=== PATIENT | male | born 1990 | race American Indian/Alaskan Native ===

== ENCOUNTER 2020-07-04 23:08 | Emergency (ER) | payer SELFPAY ==
[2020-07-05 01:03] LABS: Basophils % (Auto) 0.5 % (0.0-1.8); Eosinophils # (Auto) 0.1 K/mm3 (0.0-0.4); Eosinophils % (Auto) 1.5 % (0.0-4.3); Hematocrit 47.5 % (35.5-45.6); Hemoglobin 16.5 gm/dl (11.8-15.2); Lymphocytes # (Auto) 1.2 K/mm3 (1.2-5.4); Lymphocytes % (Auto) 20.6 % (13.4-35.0); Mean Corpuscular HGB Conc 35 % (32-34); Mean Corpuscular Volume 90 fl (84-94); Monocytes # (Auto) 0.5 K/mm3 (0.0-0.8); Monocytes % (Auto) 8.6 % (0.0-7.3); Platelet Count 194 K/mm3 (140-440); Red Blood Count 5.29 M/mm3 (3.65-5.03); Red Cell Distribution Width 13.8 % (13.2-15.2)
[2020-07-05 01:16] LABS: Alanine Aminotransferase 26 units/L (7-56); BUN/Creatinine Ratio 14; Blood Urea Nitrogen 15 mg/dL (9-20); Calcium 8.8 mg/dL (8.4-10.2); Hemolysis Index 5
[2020-07-05] MEDS ORDERED: FAMOTIDINE 20 MG/2 ML INJ IV ONE (01:32)
[2020-07-05] MEDS ORDERED: MORPHINE 4 MG/1 ML INJ IV ONE (01:32)
[2020-07-05] MEDS ORDERED: SODIUM CHLORIDE 0.9% 1000 ML 1,000 ML IV ONE (01:32)
[2020-07-05] MEDS ORDERED: ONDANSETRON 4 MG/2 ML INJ IV ONE (01:32)
--- NOTE | 2020-07-05 02:35 | Cat Scan Report ---
CT abdomen pelvis w con INDICATION: Abdominal pain. TECHNIQUE: All CT scans at this location are performed using CT dose reduction for ALARA by means of automated e xposure control. COMPARISON: None available. FINDINGS: Lung bases are clear of acute disease. Liver, gallbladder, spleen, pancreas, kidneys and adrenals are negative. Abdominal aorta is normal in size. No significant adenopathy. Pelvis Small bowel loops in the lower abdomen and pelvis are fluid-filled and mildly distended. No appreciab le free fluid. Urinary bladder is unremarkable. Appendix cannot be identified. No skeletal lesions. IMPRESSION: 1. Mildly distended and fluid-filled distal small bowel, suggesting enteritis. Etiology is not known. No evidence of obstruction. Signer Name: Lauri Mon MD Signed: 07/05/2020 2:30 AM Workstation Name: [id number]
--- NOTE | 2020-07-05 02:38 | XRay Report ---
CHEST 1 VIEW INDICATION: chest pain COMPARISON: None FINDINGS: Support devices: None Heart: Normal Lungs/Pleura: No acute pulmonary or pleural findings. Additional findings: Moderately severe upper thoracic scoliosis. IMPRESSION: 1. No acute disease. Signer Name: Lauri Mon MD Signed: 07/05/2020 2:33 AM Workstation Name: [id number]
--- NOTE | 2020-07-05 02:41 | Emergency Department Report ---
ED Abdominal Pain HPI - General Chief Complaint: Abdominal Pain Stated Complaint: CHEST PAIN/ABDOMINAL PAIN Source: patient Mode of arrival: Ambulatory Limitations: No Limitations - History of Present Illness Initial Comments: Patient is a 29-year-old -Citizen Of [place] male with no past medical history presents to the ED with complaint of acute onset persistent diffuse abdominal pain with intractable nausea and vomiting with diarrhea for the last 4 days worse in the last 24 hours. Patient states that he can hardly keep anything down including fluids and solid foods and admits that he has not eaten any food in the last 2 days. Patient states that his girlfriend also had similar symptoms about a week ago but her symptoms resolved without any treatment. Patient is unsure as to whether the etiology of the symptoms is from eating food from a restaurant. Patient also complains of chills, diffuse body aches and pains and subjective fever, lack of appetite, sore throat and diffuse burning chest pain. Patient denies dizziness, syncope, lightheadedness, shortness of breath, change in vision, nasal and sinus congestion, headache, dysuria, urinary frequency and urgency, hematemesis, hematochezia, palpitations or cough. MD Complaint: abdominal pain, other (nausea, vomiting, chest pain) -: Sudden, days(s) (4) Location: periumbilical, epigastric Radiation: none Migration to: no migration Severity: severe Severity scale (0 -10): 7 Quality: cramping, aching Consistency: constant Improves With: nothing Worsens With: eating, vomiting Context: possible food poisoning Associated Symptoms: denies other symptoms, nausea, vomiting, diarrhea, chills, anorexia. denies: fever, constipation, dysuria, hematemesis, hematochezia, melena, hematuria - Related Data Previous Rx's Medication Instructions Recorded Last Taken Type Dicyclomine [Bentyl] 20 mg PO Q6H PRN #30 tablet 07/05/20 Unknown Rx Famotidine [Pepcid] 20 mg PO BID #30 tablet 07/05/20 Unknown Rx Ondansetron [Zofran Odt] 4 mg PO Q6HR PRN #20 tab.rapdis 07/05/20 Unknown Rx Allergies Allergy/AdvReac Type Severity Reaction Status Date / Time No Known Allergies Allergy Unverified 07/04/20 23:53 ED Review of Systems ROS: Stated complaint: CHEST PAIN/ABDOMINAL PAIN Other details as noted in HPI Constitutional: chills, malaise, weakness Eyes: denies: eye pain, eye discharge, vision change ENT: denies: ear pain, throat pain Respiratory: denies: cough, shortness of breath, wheezing Cardiovascular: chest pain. denies: palpitations Endocrine: no symptoms reported Gastrointestinal: abdominal pain, nausea, vomiting, diarrhea. denies: hematemesis, melena, hematochezia Genitourinary: denies: urgency, dysuria Musculoskeletal: denies: back pain, joint swelling, arthralgia Skin: denies: rash, lesions Neurological: denies: headache, weakness, paresthesias Psychiatric: denies: anxiety, depression Hematological/Lymphatic: denies: easy bleeding, easy bruising ED Past Medical Hx - Past Medical History Previous Medical History?: No - Surgical History Past Surgical History?: No - Social History Smoking Status: Never Smoker - Medications Home Medications: Home Medications Medication Instructions Recorded Confirmed Last Taken Type Dicyclomine [Bentyl] 20 mg PO Q6H PRN #30 tablet 07/05/20 Unknown Rx Famotidine [Pepcid] 20 mg PO BID #30 tablet 07/05/20 Unknown Rx Ondansetron [Zofran Odt] 4 mg PO Q6HR PRN #20 tab.rapdis 07/05/20 Unknown Rx ED Physical Exam - General Limitations: No Limitations General appearance: alert, in no apparent distress - Head Head exam: Present: atraumatic, normocephalic, normal inspection - Eye Eye exam: Present: normal appearance, PERRL, EOMI - ENT ENT exam: Present: normal exam, normal orophraynx, mucous membranes moist, TM's normal bilaterally, normal external ear exam - Neck Neck exam: Present: normal inspection, full ROM - Respiratory Respiratory exam: Present: normal lung sounds bilaterally. Absent: respiratory distress, wheezes, rhonchi, chest wall tenderness, accessory muscle use - Cardiovascular Cardiovascular Exam: Present: normal rhythm, bradycardia, normal heart sounds. Absent: systolic murmur, diastolic murmur, rubs, gallop - GI/Abdominal GI/Abdominal exam: Present: soft, tenderness (Palpable diffuse abdominal tenderness, worse in the periumbilical and the epigastric area, no guarding or rebound), normal bowel sounds, hyperactive bowel sounds. Absent: guarding, rebound - Extremities Exam Extremities exam: Present: normal inspection, full ROM, normal capillary refill - Back Exam Back exam: Present: normal inspection, full ROM. Absent: tenderness, CVA tenderness (L), muscle spasm, paraspinal tenderness - Neurological Exam Neurological exam: Present: alert, oriented X3, CN II-XII intact, normal gait, reflexes normal - Psychiatric Psychiatric exam: Present: normal affect, normal mood - Skin Skin exam: Present: warm, dry, intact, normal color. Absent: rash ED Course Vital Signs 07/04/20 23:57 Temperature 98.5 F Pulse Rate 57 L Respiratory 18 Rate Blood Pressure 93/61 O2 Sat by Pulse 99 Oximetry ED Medical Decision Making - Lab Data Result diagrams: 07/05/20 00:22 07/05/20 00:22 - Radiology Data Radiology results: report reviewed, image reviewed [facility] [address] [place] [address] Cat Scan Report Signed Patient: UYEN STOKES MR#: [id number] 4 : 1990 Acct:[id number] Age/Sex: 29 / M ADM Date: 07/04/20 Loc: ED Attending Dr: Ordering Physician: ESTEBAN TOLBERT Date of Service: 07/05/20 Procedure(s): CT abdomen pelvis w con Accession Number(s): [id number] cc: ESTEBAN TOLBERT CT abdomen pelvis w con INDICATION: Abdominal pain. TECHNIQUE: All CT scans at this location are performed using CT dose reduction for ALARA by means of automated exposure control. COMPARISON: None available. FINDINGS: Lung bases are clear of acute disease. Liver, gallbladder, spleen, pancreas, kidneys and adrenals are negative. Abdominal aorta is normal in size. No significant adenopathy. Pelvis Small bowel loops in the lower abdomen and pelvis are fluid-filled and mildly distended. No appreciable free fluid. Urinary bladder is unremarkable. Appendix cannot be identified. No skeletal lesions. IMPRESSION: 1. Mildly distended and fluid-filled distal small bowel, suggesting enteritis. Etiology is not known. No evidence of obstruction. Signer Name: Lauri Mon MD Signed: 07/05/2020 2:30 AM Workstation Name: [id number] Transcribed By: TM Dictated By: Lauri Mon MD Electronically Authenticated By: Lauri Mon MD Signed Date/Time: 07/05/20229 DD/ 7 TD/TT: [facility] [address] [place] [address] XRay Report Signed Patient: UYEN STOKES MR#: [id number] 4 : 1990 Acct:[id number] Age/Sex: 29 / M ADM Date: 07/04/20 Loc: ED Attending Dr: Ordering Physician: Tiffany Fernandez MD Date of Service: 07/05/20 Procedure(s): XR chest 1V ap Accession Number(s): [id number] cc: Tiffany Fernandez MD Fluoro Time In Minutes: CHEST 1 VIEW INDICATION: chest pain COMPARISON: None FINDINGS: Support devices: None Heart: Normal Lungs/Pleura: No acute pulmonary or pleural findings. Additional findings: Moderately severe upper thoracic scoliosis. IMPRESSION: 1. No acute disease. Signer Name: Lauri Mon MD Signed: 07/05/2020 2:33 AM Workstation Name: [id number] Transcribed By: TM Dictated By: Lauri Mon MD Electronically Authenticated By: Lauri Mon MD Signed Date/Time: 07/05/20232 DD/ 2 TD/TT: - Medical Decision Making This is a 29-year-old -Citizen Of [place] male with no past medical history presents to the ED with complaint of acute onset persistent diffuse abdominal pain with intractable nausea and vomiting with diarrhea for the last 4 days worse in the last 24 hours. Patient states that he can hardly keep anything down including fluids and solid foods and admits that he has not eaten any food in the last 2 days. Patient states that his girlfriend also had similar symptoms about a week ago but her symptoms resolved without any treatment. Patient is unsure as to whether the etiology of the symptoms is from eating food from a restaurant. Patient also complains of chills, diffuse body aches and pains and subjective fever, lack of appetite, sore throat and diffuse burning chest pain. In the ED, patient is alert and oriented x3 and is not in distress. Patient was treated for pain in the ED and also given antiemetics and antacids, in addition to normal saline 1 L IV bolus x1. Lab test results were reviewed and are all nonactionable except for mild hyponatremia of 135 mmol/L and mild hypochloremia of 97.8 mmol/L. The rest of the lab test results are nonactionable. The abdomen pelvis CT scan with contrast showed mildly distended and fluid-filled distal small bowel, suggesting enteritis. Etiology is not known. No evidence of obstruction. Chest x-ray shows no acute cardiopulmonary abnormalities or pneumonitis. On reevaluation, patient pain is well controlled medications. Patient has not had any nausea or vomiting in the ED. Patient passed oral fluid challenge in the ED. Based on the history and physical exam findings, as well as imaging reports and lab test results, patient symptoms are likely due to viral gastroenteritis. Patient was therefore discharged home on antiemetics, antacids and pain medications and was advised to maintain a clear liquid diet for 12 to 24 hours, drink plenty of fluids and take medication as n eeded for nausea and vomiting and pain. Patient was advised to follow-up with his primary care physician in 3 to 5 days for reevaluation or return to the ED immediately if symptoms get worse. - Differential Diagnosis Gastroenteritis; pancreatitis; appendicitis; cholecystitis; gastritis; GERD Critical care attestation.: If time is entered above; I have spent that time in minutes in the direct care of this critically ill patient, excluding procedure time. ED Disposition Clinical Impression: Nausea, vomiting and diarrhea, Viral gastroenteritis Abdominal pain Qualifiers: Abdominal location: generalized Qualified Code(s): R10.84 - Generalized abdominal pain Disposition: DC-01 TO HOME OR SELFCARE Is pt being admited?: No Does the pt Need Aspirin: No Condition: Stable Instructions: Viral Gastroenteritis, Adult, [id number], Abdominal Pain, Adult, [id number], Nausea and Vomiting, Adult, [id number], Diarrhea, Adult, [id number] Additional Instructions: All lab test results were reviewed and are all nonactionable. Abdomen pelvis CT scan with contrast showed changes in small bowel consistent with enteritis without any evidence of small bowel obstruction. Chest x-ray shows no acute cardiopulmonary abnormalities or pneumonitis but of note is presence of chronic scoliosis in the thoracic spine. Therefore maintain a clear liquid diet for 12 to 24 hours, drink plenty of fluids, take medication as needed for pain and for nausea and vomiting. Follow-up with your primary care physician in 3 to 5 days for reevaluation, or otherwise return to the ED immediately if your symptoms get worse. Prescriptions: Dicyclomine [Bentyl] 20 mg PO Q6H PRN #30 tablet PRN Reason: Abdominal pain Famotidine [Pepcid] 20 mg PO BID #30 tablet Ondansetron [Zofran Odt] 4 mg PO Q6HR PRN #20 tab.rapdis PRN Reason: Nausea Referrals: [facility] [Provider Group] - 3-5 Days Forms: Work/School Release Form(ED) Time of Disposition: 02:46 Print Language: SLOVENIAN
[2020-07-05 03:06] VITALS: BP 110/71
--- NOTE | 2020-07-09 10:07 | Electrocardiograph Report ---
[facility] Test Date: 2020-07-04 Test Time: 23:48:50 Pat Name: UYEN STOKES Department: Room: Gender: M Shoe Clerk: ANTOINE : 1990 Requested By: KERI SINGH Order Number: [id number] Reading MD: Willie Flores Measurements Intervals [place] Rate: 54 P: 13 WA: 137 QRS: 85 QRSD: 86 T: 63 QT: 407 QTc: 385 Interpretive Statements Sinus bradycardia No previous ECG available for comparison Electronically Signed On 07-09-2020 10:07:29 EDT by Willie Flores
== END 2020-07-05 03:30 | disposition home or self-care (01) ==
LOC: ED 23:08
DX: A08.4 Viral intestinal infection, unspecified (principal); R10.9 Unspecified abdominal pain; R11.2 Nausea with vomiting, unspecified; R19.7 Diarrhea, unspecified; Z79.899 Other long term (current) drug therapy
CPT/HCPCS: 36415; 71045; 74177; 80053; 83690; 85025; 93005; 96361; 96374; 96375; 99284; J2270; J2405; J7030; Q9967